=== PATIENT | male | born 1975 | race Two or more races ===

== ENCOUNTER 2018-06-21 19:50 | Emergency (ER) | payer BC ==
[2018-06-21] MEDS ORDERED: cefTRIAXone 1,000 MG VIAL IV ONE (20:02)
--- NOTE | 2018-06-21 20:05 | EDM.PDOC ---
ED HPI GENERAL MEDICAL PROBLEM - General Chief Complaint: ENT Problem Stated Complaint: CONGESTED AND WHITE BUMPS ON HIS THROAT Time Seen by Provider: 06/21/18 20:03 Source of Information: Reports: Patient - History of Present Illness INITIAL COMMENTS - FREE TEXT/NARRATIVE: HISTORY AND PHYSICAL: History of present illness: []A shortness sinus tenderness right greater than left increasing over the last week no fever nausea vomiting chills sweats complains of somewhat sore throat no muffled voice drooling or trismus Review of systems: As per history of present illness and below otherwise all systems reviewed and negative. Past medical history: As per history of present illness and as reviewed below otherwise noncontributory. Surgical history: As per history of present illness and as reviewed below otherwise noncontributory. Social history: No reported history of drug or alcohol abuse. Family history: As per history of present illness and as reviewed below otherwise noncontributory. Physical exam: HEENT: Atraumatic, normocephalic, pupils reactive, negative for conjunctival pallor or scleral icterus, mucous membranes moist, throat clear, neck supple, nontender, trachea midline. Sinus pain right greater than left noted postnasal drip mild erythema of the oropharynx Lungs: Clear to auscultation, breath sounds equal bilaterally, chest nontender. Heart: S1S2, regular, negative for clicks, rubs, or JVD. Abdomen: Soft, nondistended, nontender. Negative for masses or hepatosplenomegaly. Negative for costovertebral tenderness. Pelvis: Stable nontender. Genitourinary: Deferred. Rectal: Deferred. Extremities: Atraumatic, negative for cords or calf pain. Neurovascular unremarkable. Neuro: Awake, alert, oriented. Cranial nerves II through XII unremarkable. Cerebellum unremarkable. Motor and sensory unremarkable throughout. Exam nonfocal. Diagnostics: []Clinical Therapeutics: []Rocephin 1 g IM Augmentin 875 by mouth twice a day #20 no refill Impression: [] cute sinusitis Definitive disposition and diagnosis as appropriate pending reevaluation and review of above. throat Pain Score (Numeric/FACES): 8 - Related Data Allergies Allergy/AdvReac Type Severity Reaction Status Date / Time No Known Allergies Allergy Verified 06/21/18 19:54 Home Meds: Home Meds amLODIPine [Norvasc] 20 mg PO DAILY 09/30/16 [History] Lisinopril/Hydrochlorothiazide [Lisinopril-Hctz 20-25 mg Tab] 1 each PO DAILY [History] Past Medical History Other HEENT History: many dental caries, dry socket Cardiovascular History: Reports: Hypertension Respiratory History: Reports: None Gastrointestinal History: Reports: None Genitourinary History: Reports: None Musculoskeletal History: Reports: None Neurological History: Reports: None Psychiatric History: Reports: None Endocrine/Metabolic History: Reports: None Hematologic History: Reports: None Immunologic History: Reports: None Oncologic (Cancer) History: Reports: None Dermatologic History: Reports: None - Infectious Disease History Infectious Disease History: Reports: None - Past Surgical History Head Surgeries/Procedures: Reports: None Social & Family History - Family History Family Medical History: Noncontributory - Tobacco Use Smoking Status *Q: Current Every Day Smoker Years of Tobacco use: 7 Packs/Tins Daily: 0.5 - Caffeine Use Caffeine Use: Reports: Soda - Recreational Drug Use Recreational Drug Use: No ED ROS GENERAL - Review of Systems Review Of Systems: See Below ED EXAM, GENERAL - Physical Exam Exam: See Below Course - Vital Signs Last Recorded V/S: Last Vital Signs Temp 98.1 F 06/21/18 19:56 Pulse 85 06/21/18 19:56 Resp 85 H 06/21/18 19:56 BP 153/78 H 06/21/18 19:56 Pulse Ox 96 06/21/18 19:56 - Orders/Labs/Meds Orders: Active Orders 24 hr Category Date Time Status cefTRIAXone [Rocephin] Med 06/21/18 20:02 Once 1,000 mg IV ONETIME ONE Medication Orders Ceftriaxone Sodium (Rocephin) 1,000 mg IV ONETIME ONE Stop: 06/21/18 20:03 Meds: Medications Generic Name Dose Route Start Last Admin Trade Name Freq PRN Reason Stop Dose Admin Ceftriaxone Sodium 1,000 mg 06/21/18 20:02 Rocephin IV 06/21/18 20:03 ONETIME ONE Departure - Departure Time of Disposition: 20:04 Disposition: Home, Self-Care 01 Condition: Good Clinical Impression: Sinusitis - Discharge Information Referrals: PCP,None [Primary Care Provider] - Additional Instructions: The following information is given to patients seen in the emergency department who are being discharged to home. This information is to outline your options for follow-up care. We provide all patients seen in our emergency department with a follow-up referral. The need for follow-up, as well as the timing and circumstances, are variable depending upon the specifics of your emergency department visit. If you don't have a primary care physician on staff, we will provide you with a referral. We always advise you to contact your personal physician following an emergency department visit to inform them of the circumstance of the visit and for follow-up with them and/or the need for any referrals to a consulting specialist. The emergency department will also refer you to a specialist when appropriate. This referral assures that you have the opportunity for follow-up care with a specialist. All of these measure are taken in an effort to provide you with optimal care, which includes your follow-up. Under all circumstances we always encourage you to contact your private physician who remains a resource for coordinating your care. When calling for follow-up care, please make the office aware that this follow-up is from your recent emergency room visit. If for any reason you are refused follow-up, please contact the [facility] emergency department at and asked to speak to the emergency department charge nurse. - My Orders Last 24 Hours: My Active Orders 06/21/18 20:02 cefTRIAXone [Rocephin] 1,000 mg IV ONETIME ONE - Assessment/Plan Last 24 Hours: My Active Orders 06/21/18 20:02 cefTRIAXone [Rocephin] 1,000 mg IV ONETIME ONE
[2018-06-21] MEDS ORDERED: cefTRIAXone 1,000 MG in Lidocaine 1% 4 ML IM ONE (20:14)
[2018-06-21] MEDS ORDERED: Lidocaine 1% 4 ML ONE (20:16)
[2018-06-21 21:21] VITALS: BP 145/73
== END 2018-06-21 20:56 | disposition home or self-care (01) ==
LOC: MW.ED 19:50
DX: J01.90 Acute sinusitis, unspecified (principal); F17.210 Nicotine dependence, cigarettes, uncomplicated; I10 Essential (primary) hypertension; Z79.899 Other long term (current) drug therapy
CPT/HCPCS: 96372; 99283; J0696; J2001; 99282

== ENCOUNTER 2019-02-28 10:32 | Emergency (ER) | payer BC ==
[2019-02-28] MEDS ORDERED: Sodium Chloride 0.9% 1,000 ML IV ONE (10:38)
[2019-02-28] MEDS ORDERED: Ketorolac 30 MG/ML SDV IVPUSH ONE (10:38)
--- NOTE | 2019-02-28 10:38 | EDM.PDOC ---
ED HPI GENERAL MEDICAL PROBLEM - General Chief Complaint: Headache Stated Complaint: HEADACHE Time Seen by Provider: 02/28/19 10:38 Source of Information: Reports: Patient - History of Present Illness INITIAL COMMENTS - FREE TEXT/NARRATIVE: HISTORY AND PHYSICAL: History of present illness: [Patient presents with headache 8 out of 10 nonradiating diffuse frontal headache with some nausea no fever chills sweats no dizziness or palpitation ] Review of systems: As per history of present illness and below otherwise all systems reviewed and negative. Past medical history: As per history of present illness and as reviewed below otherwise noncontributory. Surgical history: As per history of present illness and as reviewed below otherwise noncontributory. Social history: No reported history of drug or alcohol abuse. Family history: As per history of present illness and as reviewed below otherwise noncontributory. Physical exam: HEENT: Atraumatic, normocephalic, pupils reactive, negative for conjunctival pallor or scleral icterus, mucous membranes moist, throat clear, neck supple, nontender, trachea midline. Lungs: Clear to auscultation, breath sounds equal bilaterally, chest nontender. Heart: S1S2, regular, negative for clicks, rubs, or JVD. Abdomen: Soft, nondistended, nontender. Negative for masses or hepatosplenomegaly. Negative for costovertebral tenderness. Pelvis: Stable nontender. Genitourinary: Deferred. Rectal: Deferred. Extremities: Atraumatic, negative for cords or calf pain. Neurovascular unremarkable. Neuro: Awake, alert, oriented. Cranial nerves II through XII unremarkable. Cerebellum unremarkable. Motor and sensory unremarkable throughout. Exam nonfocal. Diagnostics: [CBC CMP UA Influenza Head CT no contrast ] Therapeutics: [ renal saline Toradol Levaquin 500 by mouth daily #10 no refill ] Impression: [ headache ]-renate Sinusitis Definitive disposition and diagnosis as appropriate pending reevaluation and review of above. headache Pain Score (Numeric/FACES): 9 - Related Data Allergies Allergy/AdvReac Type Severity Reaction Status Date / Time No Known Allergies Allergy Verified 09/02/18 17:22 Home Meds: Home Meds amLODIPine [Norvasc] 20 mg PO DAILY 09/30/16 [History] Lisinopril/Hydrochlorothiazide [Lisinopril-Hctz 20-25 mg Tab] 1 each PO DAILY [History] amLODIPine Besylate [Amlodipine Besylate] 10 mg PO DAILY 09/02/18 [History] Buprenorphine HCl/Naloxone HCl [Suboxone 4 mg-1 mg Sl Film] 8 mg SL 02/28/19 [ History] Past Medical History Other HEENT History: many dental caries, dry socket Cardiovascular History: Reports: Hypertension Respiratory History: Reports: None Gastrointestinal History: Reports: None Genitourinary History: Reports: None Musculoskeletal History: Reports: None Neurological History: Reports: None Psychiatric History: Reports: Addiction Endocrine/Metabolic History: Reports: None Hematologic History: Reports: None Immunologic History: Reports: None Oncologic (Cancer) History: Reports: None Dermatologic History: Reports: None - Infectious Disease History Infectious Disease History: Reports: Chicken Pox - Past Surgical History Head Surgeries/Procedures: Reports: None Social & Family History - Family History Family Medical History: Noncontributory - Caffeine Use Caffeine Use: Reports: Coffee ED ROS GENERAL - Review of Systems Review Of Systems: See Below ED EXAM, GENERAL - Physical Exam Exam: See Below Course - Vital Signs Last Recorded V/S: Last Vital Signs Temp 96.9 F 02/28/19 10:44 Pulse 72 02/28/19 10:44 Resp 16 02/28/19 10:44 BP 122/51 L 02/28/19 11:23 Pulse Ox 94 L 02/28/19 10:44 - Orders/Labs/Meds Labs: Laboratory Tests 02/28/19 02/28/19 02/28/19 Range/Units 10:55 11:05 11:05 WBC 6.03 (4.0-11.0) K/uL RBC 4.74 (4.50-5.90) M/uL Hgb 14.8 (13.0-17.0) g/dL Hct 43.5 (38.0-50.0) % MCV 91.8 (80.0-98.0) fL MCH 31.2 (27.0-32.0) pg MCHC 34.0 (31.0-37.0) g/dL RDW Std Deviation 43.3 (28.0-62.0) fl RDW Coeff of [place]inn[place] 13 (11.0-15.0) % Plt Count 229 (150-400) K/uL MPV 10.60 (7.40-12.00) fL Neut % (Auto) 63.0 (48.0-80.0) % Lymph % (Auto) 25.4 (16.0-40.0) % Starr % (Auto) 7.3 (0.0-15.0) % Eos % (Auto) 3.5 (0.0-7.0) % Baso % (Auto) 0.8 (0.0-1.5) % Neut # (Auto) 3.8 (1.4-5.7) K/uL Lymph # (Auto) 1.5 (0.6-2.4) K/uL Starr # (Auto) 0.4 (0.0-0.8) K/uL Eos # (Auto) 0.2 (0.0-0.7) K/uL Baso # (Auto) 0.1 (0.0-0.1) K/uL Nucleated RBC % 0.0 /100WBC Nucleated RBCs # 0 K/uL INR Sodium 139 (136-148) mmol/L Potassium 4.1 (3.5-5.1) mmol/L Chloride 103 (98-107) mmol/L Carbon Dioxide 26.4 (21.0-32.0) mmol/L BUN 14 (7.0-18.0) mg/dL Creatinine 0.7 L (0.8-1.3) mg/dL Est Cr Clr Drug Dosing TNP Estimated GFR (MDRD) > 60.0 ml/min Glucose 117 H (74-106) mg/dL Calcium 9.3 (8.5-10.1) mg/dL Total Bilirubin 0.3 (0.2-1.0) mg/dL AST 28 (15-37) IU/L ALT 68 H (14-63) IU/L Alkaline Phosphatase 58 (46-116) U/L Total Protein 7.3 (6.4-8.2) g/dL Albumin 4.0 (3.4-5.0) g/dL Globulin 3.3 (2.6-4.0) g/dL Albumin/Globulin Ratio 1.2 (0.9-1.6) Urine Color YELLOW Urine Appearance CLEAR Urine pH 7.0 (5.0-8.0) Ur Specific [place] 1.010 (1.001-1.035) Urine Protein NEGATIVE (NEGATIVE) mg/dL Urine Glucose (UA) NEGATIVE (NEGATIVE) mg/dL Urine Ketones NEGATIVE (NEGATIVE) mg/dL Urine Occult Blood NEGATIVE (NEGATIVE) Urine Nitrite NEGATIVE (NEGATIVE) Urine Bilirubin NEGATIVE (NEGATIVE) Urine Urobilinogen 0.2 (<2.0) EU/dL Ur Leukocyte Esterase NEGATIVE (NEGATIVE) 02/28/19 Range/Units 11:05 WBC (4.0-11.0) K/uL RBC (4.50-5.90) M/uL Hgb (13.0-17.0) g/dL Hct (38.0-50.0) % MCV (80.0-98.0) fL MCH (27.0-32.0) pg MCHC (31.0-37.0) g/dL RDW Std Deviation (28.0-62.0) fl RDW Coeff of [place]ette (11.0-15.0) % Plt Count (150-400) K/uL MPV (7.40-12.00) fL Neut % (Auto) (48.0-80.0) % Lymph % (Auto) (16.0-40.0) % Starr % (Auto) (0.0-15.0) % Eos % (Auto) (0.0-7.0) % Baso % (Auto) (0.0-1.5) % Neut # (Auto) (1.4-5.7) K/uL Lymph # (Auto) (0.6-2.4) K/uL Starr # (Auto) (0.0-0.8) K/uL Eos # (Auto) (0.0-0.7) K/uL Baso # (Auto) (0.0-0.1) K/uL Nucleated RBC % /100WBC Nucleated RBCs # K/uL INR 0.96 Sodium (136-148) mmol/L Potassium (3.5-5.1) mmol/L Chloride (98-107) mmol/L Carbon Dioxide (21.0-32.0) mmol/L BUN (7.0-18.0) mg/dL Creatinine (0.8-1.3) mg/dL Est Cr Clr Drug Dosing Estimated GFR (MDRD) ml/min Glucose (74-106) mg/dL Calcium (8.5-10.1) mg/dL Total Bilirubin (0.2-1.0) mg/dL AST (15-37) IU/L ALT (14-63) IU/L Alkaline Phosphatase (46-116) U/L Total Protein (6.4-8.2) g/dL Albumin (3.4-5.0) g/dL Globulin (2.6-4.0) g/dL Albumin/Globulin Ratio (0.9-1.6) Urine Color Urine Appearance Urine pH (5.0-8.0) Ur Specific [place] (1.001-1.035) Urine Protein (NEGATIVE) mg/dL Urine Glucose (UA) (NEGATIVE) mg/dL Urine Ketones (NEGATIVE) mg/dL Urine Occult Blood (NEGATIVE) Urine Nitrite (NEGATIVE) Urine Bilirubin (NEGATIVE) Urine Urobilinogen (<2.0) EU/dL Ur Leukocyte Esterase (NEGATIVE) Meds: Medications Discontinued Medications Generic Name Dose Route Start Last Admin Trade Name Freq PRN Reason Stop Dose Admin Enalaprilat 0.625 mg 02/28/19 11:10 02/28/19 11:23 Vasotec Iv IVPUSH 02/28/19 11:11 Not Given ONETIME ONE Sodium Chloride 1,000 mls @ 999 mls/hr 02/28/19 10:38 02/28/19 11:05 Normal Saline IV 02/28/19 11:38 999 mls/hr STAT ONE Administration Ketorolac Tromethamine 30 mg 02/28/19 10:38 02/28/19 11:07 Toradol IVPUSH 02/28/19 10:39 30 mg ONETIME ONE Administration Departure - Departure Time of Disposition: 12:32 Disposition: Home, Self-Care 01 Condition: Good Clinical Impression: Sinusitis - Discharge Information Referrals: PCP,Unknown [Primary Care Provider] - Forms: ED Department Discharge Additional Instructions: The following information is given to patients seen in the emergency department who are being discharged to home. This information is to outline your options for follow-up care. We provide all patients seen in our emergency department with a follow-up referral. The need for follow-up, as well as the timing and circumstances, are variable depending upon the specifics of your emergency department visit. If you don't have a primary care physician on staff, we will provide you with a referral. We always advise you to contact your personal physician following an emergency department visit to inform them of the circumstance of the visit and for follow-up with them and/or the need for any referrals to a consulting specialist. The emergency department will also refer you to a specialist when appropriate. This referral assures that you have the opportunity for follow-up care with a specialist. All of these measure are taken in an effort to provide you with optimal care, which includes your follow-up. Under all circumstances we always encourage you to contact your private physician who remains a resource for coordinating your care. When calling for follow-up care, please make the office aware that this follow-up is from your recent emergency room visit. If for any reason you are refused follow-up, please contact the [facility] emergency department at and asked to speak to the emergency department charge nurse.
[2019-02-28] MEDS ORDERED: Enalaprilat 1.25 MG/ML SDV IVPUSH STA (10:44)
[2019-02-28] MEDS ORDERED: Enalaprilat 1.25 MG/ML SDV IVPUSH ONE (11:10)
[2019-02-28 11:38] LABS: CHLORIDE,CL 103 mmol/L (98-107); SODIUM,NA 139 mmol/L (136-148)
--- NOTE | 2019-02-28 12:09 | CT ---
Indication: Headache Technique: Noncontrast head CT scan Findings: Axial noncontrast images through the brain parenchyma demonstrates no acute intracranial hemorrhage or mass. No midline shift. No abnormal extra-axial air or fluid collections. Polypoid soft tissue density in left maxillary sinus may represent mucous retention cyst or polyp. There is mild mucosal thickening of the maxillary sinuses. Opacification Of the ethmoid air cells. Paranasal sinuses mastoid air cells skull and scalp otherwise appears unremarkable. IMPRESSION: 1. No acute intracranial hemorrhage or mass. 2. Maxillary and ethmoid sinus disease. Please note that all CT scans at this facility use dose modulation, iterative reconstruction, and/or weight-based dosing when appropriate to reduce radiation dose to as low as reasonably achievable. Dictated by Katlyn Dockrey MD @ Feb 28 2019 12:05PM Signed by Dr. Katlyn Dockery @ Feb 28 2019 12:08PM
[2019-02-28 12:56] VITALS: BP 104/64
== END 2019-02-28 12:47 | disposition home or self-care (01) ==
LOC: MW.ED 10:32
DX: J32.9 Chronic sinusitis, unspecified (principal); I10 Essential (primary) hypertension; Z79.899 Other long term (current) drug therapy
CPT/HCPCS: 36415; 70450; 80053; 81003; 85025; 85610; 87804; 96361; 96374; 99284; J1885; J7040

== ENCOUNTER 2019-04-17 20:23 | Emergency (ER) | payer BC ==
[2019-04-17] MEDS ORDERED: Ondansetron 4 MG/2 ML SDV IVPUSH ONE (20:44)
[2019-04-17] MEDS ORDERED: Pantoprazole 40 MG Vial IVPUSH ONE (20:44)
[2019-04-17] MEDS ORDERED: Sodium Chloride 0.9% 10 ML Syringe FLUSH PRN (20:44)
[2019-04-17] MEDS ORDERED: Sodium Chloride 0.9% 2.5 ML Syringe FLUSH PRN (20:44)
[2019-04-17] MEDS ORDERED: Ketorolac 30 MG/ML SDV IVPUSH ONE (20:44)
[2019-04-17] MEDS ORDERED: Sodium Chloride 0.9% 1,000 ML IV ONE (20:44)
--- NOTE | 2019-04-17 20:46 | EDM.PDOC ---
ED HPI GENERAL MEDICAL PROBLEM - General Chief Complaint: Abdominal Pain Stated Complaint: BULGING AND MOVING MASS ON SIDE OF STOMACH Time Seen by Provider: 04/17/19 20:38 - History of Present Illness INITIAL COMMENTS - FREE TEXT/NARRATIVE: HISTORY AND PHYSICAL: History of present illness: The patient is a 44-year-old male with a history of hypertension who takes medications for that as well as takes Suboxone and presents with 2 months of episodic right upper quadrant pain associated with nausea. He says that the pain only occurs after he eats and is not specific to any particular foods. He says the episodes will last from several minutes to 45 minutes and he does not do anything to make it go away. He says it is not a burning pain and it is not like heartburn or acid reflux and he is only taking [id number] Tylenol or ibuprofen to help with the pain. He's had no vomiting with this fevers chills or flank pain and no diarrhea. His stools are not black bloody or pasty and he says they're regular for him. Currently the patient is not having the pain but he says that it feels numb and tingly in that area on the skin which also happens after an episode of pain. He has no abdominal surgical history and no GI history. He has no chest pain or shortness of breath no fevers or chills. He does have a provider in the clinic but he has not seen a provider for this. The patient describes the pain as a deep achy pain associated with the nausea. The pain does not move to the right lower quadrant or to the left side and it is not in the epigastric region. Patient says he came in this evening because he had an episode of the pain again as described above after eating and then he saw his stomach moving and he was worried. The patient says that he smokes cigarettes but he does not drink alcohol . Patient tells me he never wakes up in the middle of night with the pain and he only has pain after eating and at no other times Review of systems: As per history of present illness and below otherwise all systems reviewed and negative. Past medical history: As per history of present illness and as reviewed below otherwise noncontributory. Surgical history: As per history of present illness and as reviewed below otherwise noncontributory. Social history: No reported history of drug or alcohol abuse. Family history: As per history of present illness and as reviewed below otherwise noncontributory. Physical exam: General: Well-developed well-nourished man who is overweight and nontoxic. Vital signs are noted by me HEENT: Atraumatic, normocephalic, negative for conjunctival pallor or scleral icterus, mucous membranes moist, throat clear, neck supple, nontender, trachea midline. Lungs: Clear to auscultation, breath sounds equal bilaterally, chest nontender. Heart: S1S2, regular rate and rhythm no overt murmurs Abdomen: Soft, nondistended, nontender. Bowel sounds are slightly hyperactive and there is no tympany on percussion. There is some mild tenderness on very deep palpation in the right upper quadrant without rebound or guarding and there is no other tenderness throughout the abdomen likely in the right lower quadrant over the epigastrium. Negative for masses or hepatosplenomegaly. Negative for costovertebral tenderness. Pelvis: Stable nontender. Genitourinary: Deferred. Rectal: Deferred. Extremities: Atraumatic, full range of motion of all extremities and no pedal edema Neurovascular unremarkable. Neuro: Awake, alert, oriented. Cranial nerves II through XII unremarkable. Cerebellum unremarkable. Motor and sensory unremarkable throughout. Exam nonfocal. Diagnostics: CBC CMP amylase and lipase H. pylori UA with reflex INR CT scan of the abdomen and pelvis Therapeutics: IV fluids Zofran and Protonix Toradol I discussed all testing results with the patient and care plan for home. We will treat the H. pylori infection but he does need to follow-up as symptoms seem more consistent with an ulcer and he may need endoscopy going forward. Again he has not had any right lower quadrant tenderness nor did he may exam but he is aware that his appendix is on the larger side and he was warned about things to keep an eye out for and reasons to return Impression: Episodic right upper quadrant pain, H. pylori infection Definitive disposition and diagnosis as appropriate pending reevaluation and review of above. Right Upper Abdomen Pain Score (Numeric/FACES): 3 - Related Data Allergies Allergy/AdvReac Type Severity Reaction Status Date / Time No Known Allergies Allergy Verified 04/17/19 20:28 Home Meds: Home Meds Lisinopril/Hydrochlorothiazide [Lisinopril-Hctz 20-25 mg Tab] 1 each PO DAILY [History] Buprenorphine HCl/Naloxone HCl [Suboxone 4 mg-1 mg Sl Film] 8 mg SL DAILY [History] Past Medical History Other HEENT History: many dental caries, dry socket Cardiovascular History: Reports: Hypertension Respiratory History: Reports: None Gastrointestinal History: Reports: None Genitourinary History: Reports: None Musculoskeletal History: Reports: None Neurological History: Reports: None Psychiatric History: Reports: Addiction Endocrine/Metabolic History: Reports: None Hematologic History: Reports: None Immunologic History: Reports: None Oncologic (Cancer) History: Reports: None Dermatologic History: Reports: None - Infectious Disease History Infectious Disease History: Reports: Chicken Pox - Past Surgical History Head Surgeries/Procedures: Reports: None Social & Family History - Family History Family Medical History: Noncontributory - Tobacco Use Smoking Status *Q: Current Every Day Smoker Years of Tobacco use: 24 Packs/Tins Daily: 1 - Caffeine Use Caffeine Use: Reports: Coffee, Energy Drinks, Soda, Tea - Recreational Drug Use Recreational Drug Use: No ED ROS GENERAL - Review of Systems Review Of Systems: ROS reveals no pertinent complaints other than HPI. ED EXAM, GENERAL - Physical Exam Exam: See Below (See dictation) Course - Vital Signs Last Recorded V/S: Last Vital Signs Temp 36.4 C 04/17/19 20:30 Pulse 94 04/17/19 20:30 Resp 20 04/17/19 20:30 BP 173/100 H 04/17/19 20:30 Pulse Ox 94 L 04/17/19 20:30 - Orders/Labs/Meds Orders: Active Orders 24 hr Category Date Time Status Sodium Chloride 0.9% [Saline Flush] Med 04/17/19 20:44 Active 10 ml FLUSH ASDIRECTED PRN Sodium Chloride 0.9% [Saline Flush] Med 04/17/19 20:44 Active 2.5 ml FLUSH ASDIRECTED PRN Saline Lock Insert [OM.PC] Stat Oth 04/17/19 20:43 Ordered Medication Orders Sodium Chloride (Saline Flush) 10 ml FLUSH ASDIRECTED PRN PRN Reason: Keep Vein Open Last Admin: 04/17/19 21:06 Dose: 10 ml Sodium Chloride (Saline Flush) 2.5 ml FLUSH ASDIRECTED PRN PRN Reason: Keep Vein Open Last Admin: 04/17/19 21:06 Dose: 2.5 ml Labs: Laboratory Tests 04/17/19 04/17/19 04/17/19 Range/Units 20:43 20:55 20:55 WBC 7.59 (4.0-11.0) K/uL RBC 4.56 (4.50-5.90) M/uL Hgb 14.3 (13.0-17.0) g/dL Hct 41.3 (38.0-50.0) % MCV 90.6 (80.0-98.0) fL MCH 31.4 (27.0-32.0) pg MCHC 34.6 (31.0-37.0) g/dL RDW Std Deviation 42.1 (28.0-62.0) fl RDW Coeff of Linnette 13 (11.0-15.0) % Plt Count 242 (150-400) K/uL MPV 10.70 (7.40-12.00) fL Neut % (Auto) 52.1 (48.0-80.0) % Lymph % (Auto) 36.0 (16.0-40.0) % Williamson % (Auto) 7.1 (0.0-15.0) % Eos % (Auto) 4.1 (0.0-7.0) % Baso % (Auto) 0.7 (0.0-1.5) % Neut # (Auto) 4.0 (1.4-5.7) K/uL Lymph # (Auto) 2.7 H (0.6-2.4) K/uL Williamson # (Auto) 0.5 (0.0-0.8) K/uL Eos # (Auto) 0.3 (0.0-0.7) K/uL Baso # (Auto) 0.1 (0.0-0.1) K/uL Nucleated RBC % 0.0 /100WBC Nucleated RBCs # 0 K/uL INR 1.02 Sodium (136-148) mmol/L Potassium (3.5-5.1) mmol/L Chloride (98-107) mmol/L Carbon Dioxide (21.0-32.0) mmol/L BUN (7.0-18.0) mg/dL Creatinine (0.8-1.3) mg/dL Est Cr Clr Drug Dosing mL/min Estimated GFR (MDRD) ml/min Glucose (74-106) mg/dL Calcium (8.5-10.1) mg/dL Total Bilirubin (0.2-1.0) mg/dL AST (15-37) IU/L ALT (14-63) IU/L Alkaline Phosphatase (46-116) U/L Total Protein (6.4-8.2) g/dL Albumin (3.4-5.0) g/dL Globulin (2.6-4.0) g/dL Albumin/Globulin Ratio (0.9-1.6) Amylase (25-115) U/L Lipase (73-393) U/L Urine Color YELLOW Urine Appearance CLEAR Urine pH 6.5 (5.0-8.0) Ur Specific Anita 1.025 (1.001-1.035) Urine Protein NEGATIVE (NEGATIVE) mg/dL Urine Glucose (UA) NEGATIVE (NEGATIVE) mg/dL Urine Ketones NEGATIVE (NEGATIVE) mg/dL Urine Occult Blood NEGATIVE (NEGATIVE) Urine Nitrite NEGATIVE (NEGATIVE) Urine Bilirubin NEGATIVE (NEGATIVE) Urine Urobilinogen 0.2 (<2.0) EU/dL Ur Leukocyte Esterase NEGATIVE (NEGATIVE) H. pylori IgG Antibody (NEG) 04/17/19 04/17/19 Range/Units 20:55 20:58 WBC (4.0-11.0) K/uL RBC (4.50-5.90) M/uL Hgb (13.0-17.0) g/dL Hct (38.0-50.0) % MCV (80.0-98.0) fL MCH (27.0-32.0) pg MCHC (31.0-37.0) g/dL RDW Std Deviation (28.0-62.0) fl RDW Coeff of Linnette (11.0-15.0) % Plt Count (150-400) K/uL MPV (7.40-12.00) fL Neut % (Auto) (48.0-80.0) % Lymph % (Auto) (16.0-40.0) % Williamson % (Auto) (0.0-15.0) % Eos % (Auto) (0.0-7.0) % Baso % (Auto) (0.0-1.5) % Neut # (Auto) (1.4-5.7) K/uL Lymph # (Auto) (0.6-2.4) K/uL Williamson # (Auto) (0.0-0.8) K/uL Eos # (Auto) (0.0-0.7) K/uL Baso # (Auto) (0.0-0.1) K/uL Nucleated RBC % /100WBC Nucleated RBCs # K/uL INR Sodium 139 (136-148) mmol/L Potassium 3.5 (3.5-5.1) mmol/L Chloride 102 (98-107) mmol/L Carbon Dioxide 28.7 (21.0-32.0) mmol/L BUN 15 (7.0-18.0) mg/dL Creatinine 0.7 L (0.8-1.3) mg/dL Est Cr Clr Drug Dosing 134.67 mL/min Estimated GFR (MDRD) > 60.0 ml/min Glucose 118 H (74-106) mg/dL Calcium 9.0 (8.5-10.1) mg/dL Total Bilirubin 0.3 (0.2-1.0) mg/dL AST 26 (15-37) IU/L ALT 57 (14-63) IU/L Alkaline Phosphatase 66 (46-116) U/L Total Protein 7.3 (6.4-8.2) g/dL Albumin 3.9 (3.4-5.0) g/dL Globulin 3.4 (2.6-4.0) g/dL Albumin/Globulin Ratio 1.1 (0.9-1.6) Amylase 37 (25-115) U/L Lipase 201 (73-393) U/L Urine Color Urine Appearance Urine pH (5.0-8.0) Ur Specific Anita (1.001-1.035) Urine Protein (NEGATIVE) mg/dL Urine Glucose (UA) (NEGATIVE) mg/dL Urine Ketones (NEGATIVE) mg/dL Urine Occult Blood (NEGATIVE) Urine Nitrite (NEGATIVE) Urine Bilirubin (NEGATIVE) Urine Urobilinogen (<2.0) EU/dL Ur Leukocyte Esterase (NEGATIVE) H. pylori IgG Antibody POSITIVE H (NEG) Meds: Medications Generic Name Dose Route Start Last Admin Trade Name Freq PRN Reason Stop Dose Admin Sodium Chloride 10 ml 04/17/19 20:44 04/17/19 21:06 Saline Flush FLUSH 10 ml ASDIRECTED PRN Administration Keep Vein Open Sodium Chloride 2.5 ml 04/17/19 20:44 04/17/19 21:06 Saline Flush FLUSH 2.5 ml ASDIRECTED PRN Administration Keep Vein Open Discontinued Medications Generic Name Dose Route Start Last Admin Trade Name Freq PRN Reason Stop Dose Admin Sodium Chloride 1,000 mls @ 999 mls/hr 04/17/19 20:44 04/17/19 20:55 Normal Saline IV 04/17/19 21:44 999 mls/hr STAT ONE Administration Sodium Chloride Confirm 04/17/19 20:58 04/17/19 21:07 Normal Saline Administered 04/17/19 20:59 1 mls/hr Dose Administration 20 mls @ as directed .ROUTE .STK-MED ONE Ketorolac Tromethamine 30 mg 04/17/19 20:44 04/17/19 21:05 Toradol IVPUSH 04/17/19 20:45 30 mg ONETIME ONE Administration Ondansetron HCl 4 mg 04/17/19 20:44 04/17/19 21:03 Zofran IVPUSH 04/17/19 20:45 4 mg ONETIME ONE Administration Pantoprazole Sodium 80 mg 04/17/19 20:44 04/17/19 21:03 Protonix Iv IVPUSH 04/17/19 20:45 80 mg .BOLUS ONE Administration Departure - Departure Time of Disposition: 22:50 Disposition: Home, Self-Care 01 Condition: Good Clinical Impression: H. pylori infection Abdominal pain Qualifiers: Abdominal location: right upper quadrant Qualified Code(s): R10.11 - Right upper quadrant pain - Discharge Information Referrals: PCP,Unknown [Primary Care Provider] - Forms: ED Department Discharge Additional Instructions: The following information is given to patients seen in the emergency department who are being discharged to home. This information is to outline your options for follow-up care. We provide all patients seen in our emergency department with a follow-up referral. The need for follow-up, as well as the timing and circumstances, are variable depending upon the specifics of your emergency department visit. If you don't have a primary care physician on staff, we will provide you with a referral. We always advise you to contact your personal physician following an emergency department visit to inform them of the circumstance of the visit and for follow-up with them and/or the need for any referrals to a consulting specialist. The emergency department will also refer you to a specialist when appropriate. This referral assures that you have the opportunity for followup care with a specialist. All of these measure are taken in an effort to provide you with optimal care, which includes your followup. Under all circumstances we always encourage you to contact your private physician who remains a resource for coordinating your care. When calling for followup care, please make the office aware that this follow-up is from your recent emergency room visit. If for any reason you are refused follow-up, please contact the [facility] emergency department at and ask to speak to the emergency department charge nurse. [facility] Primary [facility]- [facility] Medicine [facility] [address] [place] [id number] [facility] Professional Building [address] [place] [id number] Please try to eat a bland diet and avoid caffeinated products and alcohol. Please take medications as prescribed for the infection in your stomach and please call and schedule a follow-up appointment for next week with one of our providers in the clinic to reevaluate your symptoms and to see if you need more testing such as an upper endoscopy. Return to ER as needed and as discussed - My Orders Last 24 Hours: My Active Orders 04/17/19 20:43 Saline Lock Insert [OM.PC] Stat 04/17/19 20:44 Sodium Chloride 0.9% [Saline Flush] 10 ml FLUSH ASDIRECTED PRN Sodium Chloride 0.9% [Saline Flush] 2.5 ml FLUSH ASDIRECTED PRN - Assessment/Plan Last 24 Hours: My Active Orders 04/17/19 20:43 Saline Lock Insert [OM.PC] Stat 04/17/19 20:44 Sodium Chloride 0.9% [Saline Flush] 10 ml FLUSH ASDIRECTED PRN Sodium Chloride 0.9% [Saline Flush] 2.5 ml FLUSH ASDIRECTED PRN
[2019-04-17] MEDS ORDERED: Sodium Chloride 0.9% 20 ML ONE (20:58)
[2019-04-17 21:43] LABS: CHLORIDE,CL 102 mmol/L (98-107); SODIUM,NA 139 mmol/L (136-148)
--- NOTE | 2019-04-17 22:42 | CT ---
INDICATION: Episodic right upper quadrant pain TECHNIQUE: CT abdomen and pelvis acquired with 100 cc Isovue 370 IV contrast. COMPARISON: None FINDINGS: Lower chest: Unremarkable. Liver: Unremarkable. Spleen: Unremarkable. Pancreas: Unremarkable. Gallbladder and bile ducts: Unremarkable. Adrenal glands: Unremarkable. Kidneys: Unremarkable. GI tract: The appendix measures 7.6 mm in diameter. There is no periappendiceal fat stranding. Moderate amount of feces throughout the colon. Vascular structures: Unremarkable. Lymph nodes: Unremarkable. Miscellaneous: Unremarkable. No free air or significant free fluid. Pelvic Organs: Unremarkable. Bones: Unremarkable for age. IMPRESSION: Mild dilatation of the appendix without appendiceal fat stranding. This may be normal for this patient or could represent early acute appendicitis. Clinical correlation needed. Moderate amount of feces throughout the colon. Please note that all CT scans at this facility use dose modulation, iterative reconstruction, and/or weight-based dosing when appropriate to reduce radiation dose to as low as reasonably achievable. Dictated by Stefany Garcia MD @ Apr 17 2019 10:40PM Signed by Dr. Stefany Garcia @ Apr 17 2019 10:40PM
[2019-04-17] MEDS ORDERED: Iopamidol 755 MG/ML 500 ML Multipack Bottle IVPUSH STA (22:55)
[2019-04-18 01:56] VITALS: BP 142/84
== END 2019-04-17 23:15 | disposition home or self-care (01) ==
LOC: MW.ED 20:23
DX: R10.11 Right upper quadrant pain (principal); B96.81 Helicobacter pylori [H. pylori] as the cause of diseases classified elsewhere; I10 Essential (primary) hypertension; F17.210 Nicotine dependence, cigarettes, uncomplicated; Z79.899 Other long term (current) drug therapy
CPT/HCPCS: 36415; 74177; 80053; 81003; 82150; 83690; 85025; 85610; 86677; 96361; 96374; 96375; 99284; C9113; J1885; J2405; J7040; Q9967

== ENCOUNTER 2020-03-11 20:50 | Emergency (ER) | payer BC ==
[2020-03-11] MEDS ORDERED: cloNIDine 0.1 MG Tab PO ONE (21:07)
--- NOTE | 2020-03-11 21:14 | EDM.PDOC ---
ED HPI GENERAL MEDICAL PROBLEM - General Chief Complaint: Cardiovascular Problem Stated Complaint: BLOOD PRESSURE PROBLEMS Time Seen by Provider: 03/11/20 20:54 Source of Information: Reports: Patient History Limitations: Reports: No Limitations - History of Present Illness INITIAL COMMENTS - FREE TEXT/NARRATIVE: History of present illness: [Patient is 45-year-old male who presents with chief complaint of blood pressure control problems. He states he was recently seen by Dr. Guthrie, who adjusted some of his medications and started him on losartan that he takes in the morning, and amlodipine that he takes at night. He is also taking chlorthalidone in the morning. He has been on this new regimen now for a few days. He states that his blood pressure was high while he was at work today, he measured it and it was in the 190s over 120s. He felt a little bit tired and "heavy in his chest." He went home and took his evening dose of amlodipine and states that he is starting to feel better now though his blood pressure is still running high. Currently denies any chest pain, shortness of breath, fever , cough, headache, blurry vision.] Review of systems: As per history of present illness and below otherwise all systems reviewed and negative. Past medical history: As per history of present illness and as reviewed below otherwise noncontributory. Surgical history: As per history of present illness and as reviewed below otherwise noncontributory. Social history: No reported history of drug or alcohol abuse. Family history: As per history of present illness and as reviewed below otherwise noncontributory. Physical exam: General: Awake, alert, no acute distress, A&O X3. HEENT: Atraumatic, normocephalic, pupils reactive, negative for conjunctival pallor or scleral icterus, mucous membranes moist, throat clear, neck supple, nontender, trachea midline. Lungs: Clear to auscultation, breath sounds equal bilaterally, chest nontender. Heart: S1S2, regular, negative for clicks, rubs, or JVD. Abdomen: Soft, nondistended, nontender. Negative for masses or hepatosplenomegaly. Negative for costovertebral tenderness. Pelvis: Stable nontender. Genitourinary: Deferred. Rectal: Deferred. Extremities: Atraumatic, negative for cords or calf pain. Neurovascular unremarkable. Neuro: Awake, alert, oriented. Motor and sensory grossly intact throughout. Exam nonfocal. Diagnostics: [] Therapeutics: [] Impression: [] Plan: [] Definitive disposition and diagnosis as appropriate pending reevaluation and review of above. - Related Data Allergies Allergy/AdvReac Type Severity Reaction Status Date / Time No Known Allergies Allergy Verified 03/11/20 21:05 Home Meds: Home Meds Buprenorphine HCl/Naloxone HCl [Suboxone 4 mg-1 mg Sl Film] 8 mg SL DAILY [History] Chlorthalidone 25 mg PO DAILY 03/11/20 [History] Losartan Potassium 50 mg PO DAILY 03/11/20 [History] amLODIPine Besylate [Amlodipine Besylate] 5 mg PO DAILY 03/11/20 [History] cloNIDine [Catapres] 0.1 mg PO Q8H PRN #30 tab 03/11/20 [Rx] Past Medical History Other HEENT History: many dental caries, dry socket Cardiovascular History: Reports: Hypertension Respiratory History: Reports: None Gastrointestinal History: Reports: None Genitourinary History: Reports: None Musculoskeletal History: Reports: None Neurological History: Reports: None Psychiatric History: Reports: Addiction Endocrine/Metabolic History: Reports: None Hematologic History: Reports: None Immunologic History: Reports: None Oncologic (Cancer) History: Reports: None Dermatologic History: Reports: None - Infectious Disease History Infectious Disease History: Reports: Chicken Pox - Past Surgical History Head Surgeries/Procedures: Reports: None Social & Family History - Family History Family Medical History: Noncontributory - Caffeine Use Caffeine Use: Reports: Coffee, Energy Drinks, Soda, Tea ED ROS GENERAL - Review of Systems Review Of Systems: Comprehensive ROS is negative, except as noted in HPI. ED EXAM, GENERAL - Physical Exam Exam: See Below (see h and p) Course - Vital Signs Text/Narrative:: Patient declined any, work-up. States that he only wanted to get his blood pressure checked and see if he can get an extra dose of medication to help control his blood pressure. I told him I was concerned about what happened to him earlier today with his chest discomfort and I thought it would be a good idea to get lab work, EKG, chest x-ray, etc. He states he would prefer to do that in the outpatient setting with Dr. Guthrie, she is setting him up with outpatient cardiology testing next week. He is currently asymptomatic. I told him a full work-up could not be elicited without these labs, he understands that , but has elected to forego any lab work or work-up at all other than agreeing to a dose of clonidine here to help with his blood pressure. Last Recorded V/S: Last Vital Signs Temp 36.2 C 03/11/20 21:02 Pulse 88 03/11/20 21:30 Resp 18 03/11/20 21:30 BP 151/99 H 03/11/20 21:30 Pulse Ox 94 L 03/11/20 21:30 - Orders/Labs/Meds Meds: Medications Discontinued Medications Generic Name Dose Route Start Last Admin Trade Name Freq PRN Reason Stop Dose Admin Clonidine HCl 0.1 mg 03/11/20 21:07 03/11/20 21:11 Catapres PO 03/11/20 21:08 0.1 mg ONETIME ONE Administration Departure - Departure Time of Disposition: 21:15 Disposition: Home, Self-Care 01 Condition: Good Clinical Impression: Hypertension Prescriptions: cloNIDine [Catapres] 0.1 mg PO Q8H PRN #30 tab PRN Reason: Hypertension Instructions: Managing Your Hypertension Referrals: PCP,None [Primary Care Provider] - Forms: ED Department Discharge Additional Instructions: Take the clonidine as needed if your other previously prescribed medications are not adequately controlling your blood pressure. Follow up with Dr. Guthrie, return to ED with any new or worsening symptoms. The following information is given to patients seen in the emergency department who are being discharged to home. This information is to outline your options for follow-up care. We provide all patients seen in our emergency department with a follow-up referral. The need for follow-up, as well as the timing and circumstances, are variable depending upon the specifics of your emergency department visit. If you don't have a primary care physician on staff, we will provide you with a referral. We always advise you to contact your personal physician following an emergency department visit to inform them of the circumstance of the visit and for follow-up with them and/or the need for any referrals to a consulting specialist. The emergency department will also refer you to a specialist when appropriate. This referral assures that you have the opportunity for follow-up care with a specialist. All of these measure are taken in an effort to provide you with optimal care, which includes your follow-up. Under all circumstances we always encourage you to contact your private physician who remains a resource for coordinating your care. When calling for follow-up care, please make the office aware that this follow-up is from your recent emergency room visit. If for any reason you are refused follow-up, please contact the [facility] Emergency Department at and asked to speak to the emergency department charge nurse. Sepsis Event Note - Evaluation Sepsis Screening Result: No Definite Risk - Focused Exam Vital Signs: Vital Signs Temp Pulse Resp BP BP Pulse Ox 03/11/20 21:30 88 18 151/99 H 94 L 03/11/20 21:11 158/87 H 03/11/20 21:02 36.2 C 94 18 157/102 H 98 Date Exam was Performed: 03/11/20 Time Exam was Performed: 22:33
[2020-03-11 21:34] VITALS: BP 151/99; PULSE 88
== END 2020-03-11 21:31 | disposition home or self-care (01) ==
LOC: MW.ED 20:50
DX: I10 Essential (primary) hypertension (principal); Z79.899 Other long term (current) drug therapy
CPT/HCPCS: 99283; A9270; 99282

== ENCOUNTER 2020-04-11 18:46 | Emergency (ER) | payer BC ==
--- NOTE | 2020-04-11 19:01 | EDM.PDOC ---
ED HPI GENERAL MEDICAL PROBLEM - General Stated Complaint: HIGH BLOOD PRESSURE Time Seen by Provider: 04/11/20 18:59 Source of Information: Reports: Patient History Limitations: Reports: No Limitations - History of Present Illness INITIAL COMMENTS - FREE TEXT/NARRATIVE: HISTORY AND PHYSICAL: History of present illness: Patient is a 45-year-old male who presents to the emergency room today with request of medication refill. Patient states he has a history of hypertension and recently moved to the area but has yet to establish care with a primary care provider. Last month he was seen in our emergency department and had medication refill and states he did call to set up an appointment but has not heard a date or time yet. He states he is asymptomatic and has no other concerns or complaints other than wanting his medication refilled for another month until he can get his appointment. Patient denies any fever, chills, headache, change in vision, syncope or near syncope. Denies any chest pain, back pain, shortness of breath or cough. Denies any GI or symptoms. Review of systems: As per history of present illness and below otherwise all systems reviewed and negative. Past medical history: As per history of present illness and as reviewed below otherwise noncontributory. Surgical history: As per history of present illness and as reviewed below otherwise noncontributory. Social history: See social history for further information Family history: As per history of present illness and as reviewed below otherwise noncontributory. Physical exam: General: Well-developed and well nourished 45-year-old male. Alert and oriented. Nontoxic-appearing and in no acute distress. HEENT: Atraumatic, normocephalic, pupils equal and reactive bilaterally, negative for conjunctival pallor or scleral icterus, mucous membranes moist, trachea midline. No drooling or trismus noted. No meningeal signs. No hot potato voice noted. Lungs: Clear to auscultation, breath sounds equal bilaterally, chest nontender. Heart: S1S2, regular rate and rhythm without overt murmur Abdomen: Soft, nondistended, nontender. Skin: Intact, warm, dry. No lesions or rashes noted. Extremities: Atraumatic, moves all extremities per self without difficulty or deficits, negative for cords or calf pain. Neurovascular unremarkable. Neuro: Awake, alert, oriented. Cranial nerves II through XII unremarkable. Cerebellum unremarkable. Motor and sensory unremarkable throughout. Exam nonfocal. Notes: Patient declines wanting any diagnostics at this time he states he feels healthy. We discussed the importance of establishing care with a primary care provider for his chronic health conditions. Supportive care measures were reviewed and discussed. Voices understanding and is agreeable to plan of care. Denies any further questions or concerns at this time. Diagnostics: None Therapeutics: None Prescription: Clonidine Impression: Encounter for medication refill Plan: 1. Take your medications as prescribed. 2. Please make sure you follow-up with primary care see you can have your medications refilled and continue with your care and management of your chronic health problems. 3. Return to the emergency room as needed and as discussed. Definitive disposition and diagnosis as appropriate pending reevaluation and review of above. - Related Data Allergies Allergy/AdvReac Type Severity Reaction Status Date / Time No Known Allergies Allergy Verified 04/11/20 18:58 Home Meds: Home Meds Chlorthalidone 25 mg PO DAILY 03/11/20 [History] Losartan Potassium 50 mg PO DAILY 03/11/20 [History] amLODIPine Besylate [Amlodipine Besylate] 5 mg PO DAILY 03/11/20 [History] cloNIDine [Catapres] 0.1 mg PO Q8H PRN #30 tab 04/11/20 [Rx] Past Medical History Other HEENT History: many dental caries, dry socket Cardiovascular History: Reports: Hypertension Respiratory History: Reports: None Gastrointestinal History: Reports: None Genitourinary History: Reports: None Musculoskeletal History: Reports: None Neurological History: Reports: None Psychiatric History: Reports: Addiction Endocrine/Metabolic History: Reports: None Hematologic History: Reports: None Immunologic History: Reports: None Oncologic (Cancer) History: Reports: None Dermatologic History: Reports: None - Infectious Disease History Infectious Disease History: Reports: Chicken Pox - Past Surgical History Head Surgeries/Procedures: Reports: None Social & Family History - Family History Family Medical History: Noncontributory - Caffeine Use Caffeine Use: Reports: Coffee, Energy Drinks, Soda, Tea ED ROS GENERAL - Review of Systems Review Of Systems: Comprehensive ROS is negative, except as noted in HPI. ED EXAM, GENERAL - Physical Exam Exam: See Below (See dictation) Course - Vital Signs Last Recorded V/S: Last Vital Signs Temp 98.6 F 04/11/20 19:00 Pulse 76 04/11/20 19:00 Resp 16 04/11/20 19:00 BP 146/87 H 04/11/20 19:00 Pulse Ox 98 04/11/20 19:00 Departure - Departure Time of Disposition: 19:00 Disposition: Home, Self-Care 01 Clinical Impression: Encounter for medication refill - Discharge Information Prescriptions: cloNIDine [Catapres] 0.1 mg PO Q8H PRN #30 tab PRN Reason: Hypertension Instructions: Medicine Refill at the Emergency Department Referrals: Julianna Guthrie NP [Primary Care Provider] - Forms: ED Department Discharge Additional Instructions: The following information is given to patients seen in the emergency department who are being discharged to home. This information is to outline your options for follow-up care. We provide all patients seen in our emergency department with a follow-up referral. The need for follow-up, as well as the timing and circumstances, are variable depending upon the specifics of your emergency department visit. If you don't have a primary care physician on staff, we will provide you with a referral. We always advise you to contact your personal physician following an emergency department visit to inform them of the circumstance of the visit and for follow-up with them and/or the need for any referrals to a consulting specialist. The emergency department will also refer you to a specialist when appropriate. This referral assures that you have the opportunity for follow-up care with a specialist. All of these measure are taken in an effort to provide you with optimal care, which includes your follow-up. Under all circumstances we always encourage you to contact your private physician who remains a resource for coordinating your care. When calling for follow-up care, please make the office aware that this follow-up is from your recent emergency room visit. If for any reason you are refused follow-up, please contact the [facility] Emergency Department at and asked to speak to the emergency department charge nurse. [facility] [address] [place] [id number] [address] 1. Take your medications as prescribed. 2. Please make sure you follow-up with primary care see you can have your medications refilled and continue with your care and management of your chronic health problems. 3. Return to the emergency room as needed and as discussed. Sepsis Event Note - Focused Exam Vital Signs: Vital Signs Temp Pulse Resp BP Pulse Ox 04/11/20 19:00 98.6 F 76 16 146/87 H 98 Date Exam was Performed: 04/11/20 Time Exam was Performed: 19:10
[2020-04-11 19:07] VITALS: BP 146/87; PULSE 76
== END 2020-04-11 19:09 | disposition home or self-care (01) ==
LOC: MW.ED 18:46
DX: I10 Essential (primary) hypertension (principal); Z76.0 Encounter for issue of repeat prescription; Z79.899 Other long term (current) drug therapy
CPT/HCPCS: 99281

== ENCOUNTER 2020-04-30 17:05 | Emergency (ER) | payer BC ==
[2020-04-30 17:26] VITALS: PULSE 78
--- NOTE | 2020-04-30 17:31 | EDM.PDOC ---
ED HPI GENERAL MEDICAL PROBLEM - General Chief Complaint: General Stated Complaint: TOOTH ACHE Time Seen by Provider: 04/30/20 17:25 - History of Present Illness INITIAL COMMENTS - FREE TEXT/NARRATIVE: History of present illness: [] Patient presents to the emergency department with right lower dental pain which is been present for more than 1 week he denies any trouble swallowing no fever no chills he takes [id number] pain medications nothing is making it go away he is not bothered to contact a dentist. Review of systems: As per history of present illness and below otherwise all systems reviewed and negative. Past medical history: As per history of present illness and as reviewed below otherwise noncontributory. Surgical history: As per history of present illness and as reviewed below otherwise noncontribut ory. Social history: No reported history of drug or alcohol abuse. Family history: As per history of present illness and as reviewed below otherwise noncontributory. Physical exam: HEENT: Atraumatic, normocephalic, pupils reactive, negative for conjunctival pallor or scleral icterus, mucous membranes moist, throat clear, neck supple, nontender, trachea midline. Widespread poor dentition no trismus Lungs: Clear to auscultation, breath sounds equal bilaterally, chest nontender. Heart: S1S2, regular, negative for clicks, rubs, or JVD. Abdomen: Soft, nondistended, nontender. Negative for masses or hepatosplenomegaly. Negative for costovertebral tenderness. Pelvis: Stable nontender. Genitourinary: Deferred. Rectal: Deferred. Extremities: Atraumatic, negative for cords or calf pain. Neurovascular unremarkable. Neuro: Awake, alert, oriented. Cranial nerves II through XII unremarkable. Cerebellum unremarkable. Motor and sensory unremarkable throughout. Exam nonfocal. Diagnostics: [] Therapeutics: [] Impression: Dental pain [] Plan: Naproxen Pen-Vee K encouraged to see a dentist [] Definitive disposition and diagnosis as appropriate pending reevaluation and review of above. Right dental Pain Score (Numeric/FACES): 8 - Related Data Allergies Allergy/AdvReac Type Severity Reaction Status Date / Time No Known Allergies Allergy Verified 04/30/20 17:19 Home Meds: Home Meds Chlorthalidone 25 mg PO DAILY 03/11/20 [History] Losartan Potassium 50 mg PO DAILY 03/11/20 [History] amLODIPine Besylate [Amlodipine Besylate] 5 mg PO DAILY 03/11/20 [History] cloNIDine [Catapres] 0.1 mg PO Q8H PRN #30 tab 04/11/20 [Rx] Naproxen [EC-Naproxen] 500 mg PO Q12HR #20 tablet. 04/30/20 [Rx] Penicillin V Potassium [Veetids] 500 mg PO QID #40 tab 04/30/20 [Rx] Past Medical History HEENT History: Reports: None Other HEENT History: many dental caries, dry socket Cardiovascular History: Reports: Hypertension Respiratory History: Reports: None Gastrointestinal History: Reports: None Genitourinary History: Reports: UTI, Recurrent Musculoskeletal History: Reports: None, Other (See Below) Other Musculoskeletal History: 22 stitches in R) leg Neurological History: Reports: None Psychiatric History: Reports: Addiction Endocrine/Metabolic History: Reports: None Hematologic History: Reports: None Immunologic History: Reports: None Oncologic (Cancer) History: Reports: None Dermatologic History: Reports: None - Infectious Disease History Infectious Disease History: Reports: Chicken Pox - Past Surgical History Head Surgeries/Procedures: Reports: None Social & Family History - Family History Family Medical History: Noncontributory - Caffeine Use Caffeine Use: Reports: None ED ROS GENERAL - Review of Systems Review Of Systems: See Below ED EXAM, GENERAL - Physical Exam Exam: See Below Course - Vital Signs Text/Narrative:: Patient is encouraged to follow-up with a dentist is explained to him that I am unable to properly take care of dental problems at the emergency department. Last Recorded V/S: Last Vital Signs Temp 36.7 C 04/30/20 17:22 Pulse 78 04/30/20 17:22 Resp 18 04/30/20 17:22 BP 144/83 H 04/30/20 17:22 Pulse Ox 98 04/30/20 17:22 Departure - Departure Time of Disposition: 17:28 Disposition: Home, Self-Care 01 Condition: Good Clinical Impression: Dental caries - Discharge Information *PRESCRIPTION DRUG MONITORING PROGRAM REVIEWED*: Not Applicable *COPY OF PRESCRIPTION DRUG MONITORING REPORT IN PATIENT KATHY: Not Applicable Instructions: Preventive Dental Care, Adult Referrals: Physician,Other [Primary Care Provider] - Additional Instructions: The following information is given to patients seen in the emergency department who are being discharged to home. This information is to outline your options for follow-up care. We provide all patients seen in our emergency department with a follow-up referral. The need for follow-up, as well as the timing and circumstances, are variable depending upon the specifics of your emergency department visit. If you don't have a primary care physician on staff, we will provide you with a referral. We always advise you to contact your personal physician following an emergency department visit to inform them of the circumstance of the visit and for follow-up with them and/or the need for any referrals to a consulting specialist. The emergency department will also refer you to a specialist when appropriate. This referral assures that you have the opportunity for follow-up care with a specialist. All of these measure are taken in an effort to provide you with optimal care, which includes your follow-up. Under all circumstances we always encourage you to contact your private physician who remains a resource for coordinating your care. When calling for follow-up care, please make the office aware that this follow-up is from your recent emergency room visit. If for any reason you are refused follow-up, please contact the [facility] Emergency Department at and asked to speak to the emergency department charge nurse. You need to follow-up with a dentist for definitive care. Sepsis Event Note (ED) - Evaluation Sepsis Screening Result: No Definite Risk - Focused Exam Vital Signs: Vital Signs Temp Pulse Resp BP Pulse Ox 04/30/20 17:22 36.7 C 78 18 144/83 H 98
[2020-04-30 17:48] VITALS: BP 133/77
== END 2020-04-30 17:48 | disposition home or self-care (01) ==
LOC: MW.ED 17:05
DX: K02.9 Dental caries, unspecified (principal); I10 Essential (primary) hypertension; Z79.899 Other long term (current) drug therapy
CPT/HCPCS: 99282

== ENCOUNTER 2020-05-04 18:10 | Emergency (ER) | payer BC ==
--- NOTE | 2020-05-04 18:16 | EDM.PDOC ---
ED HPI GENERAL MEDICAL PROBLEM - General Stated Complaint: HIGH BLOOD PRESSURE Time Seen by Provider: 05/04/20 18:15 Source of Information: Reports: Patient History Limitations: Reports: No Limitations - History of Present Illness INITIAL COMMENTS - FREE TEXT/NARRATIVE: HISTORY AND PHYSICAL: History of present illness: Patient is a 45-year-old male who presents to the emergency room with complaints of dental pain and hypertension. Patient has a history of hypertension and does take daily medication along with clonidine for episodes where his blood pressure is elevated. He states that he had a tooth extracted at 1430 and shortly after he became dizzy and was concerned his blood pressure was elevated. He did take a clonidine approximately 1 hour prior to arrival. His symptoms of dizziness has subsided he now has the dental pain but states he cannot take any narcotics as he does take Suboxone. Patient denies any fever, chills, headache, change in vision, syncope or near syncope. Denies any chest pain, back pain, shortness of breath or cough. Denies any GI or symptoms. Patient has been eating and drinking appropriately. Review of systems: As per history of present illness and below otherwise all systems reviewed and negative. Past medical history: As per history of present illness and as reviewed below otherwise noncontributory. Surgical history: As per history of present illness and as reviewed below otherwise noncontributory. Social history: See social history for further information Family history: As per history of present illness and as reviewed below otherwise noncontributory. Physical exam: General: Well-developed and well-nourished 45-year-old male. Alert and oriented. Nontoxic-appearing and in no acute distress. HEENT: Atraumatic, normocephalic, pupils equal and reactive bilaterally, negative for conjunctival pallor or scleral icterus, mucous membranes moist, dental extraction noted to the right mid lower jawline. TMs normal bilaterally, throat clear, neck supple, nontender, trachea midline. No drooling or trismus noted. No meningeal signs. No hot potato voice noted. Lungs: Clear to auscultation, breath sounds equal bilaterally, chest nontender. Heart: S1S2, regular rate and rhythm without overt murmur Abdomen: Soft, nondistended, nontender. Skin: Intact, warm, dry. No lesions or rashes noted. Extremities: Atraumatic, moves all extremities per self without difficulty or deficits, negative for cords or calf pain. Neurovascular unremarkable. Neuro: Awake, alert, oriented. Cranial nerves II through XII unremarkable. Cerebellum unremarkable. Motor and sensory unremarkable throughout. Exam nonfocal. Notes: EKG shows a normal sinus rhythm with rate of 64. This was compared to previous EKG on 09/02/2018, no changes. Vital signs remained stable. He states he is asymptomatic and declines any diagnostics. After reviewing it does show that he has had labs recently done in [place]. Follow-up and supportive care measures were reviewed and discussed. Voices understanding and is agreeable to plan of care. Denies any further questions or concerns at this time. Diagnostics: EKG Therapeutics: Dental balls Prescription: None Impression: Dentalgia Encounter for medical screening exam Plan: 1. Continue taking your home medications for your hypertension as directed. 2. Alternate Tylenol and ibuprofen as needed for pain. You can use the dental balls as needed for topical pain relief. 3. Please follow-up with your dentist if continue to have pain. Follow-up with your primary care provider for your high blood pressure concerns. Return to the emergency room as needed and as we discussed. Definitive disposition and diagnosis as appropriate pending reevaluation and review of above. mouth Pain Score (Numeric/FACES): 10 - Related Data Allergies Allergy/AdvReac Type Severity Reaction Status Date / Time No Known Allergies Allergy Verified 05/04/20 18:23 Home Meds: Home Meds Chlorthalidone 25 mg PO DAILY 03/11/20 [History] Losartan Potassium 50 mg PO DAILY 03/11/20 [History] amLODIPine Besylate [Amlodipine Besylate] 5 mg PO DAILY 03/11/20 [History] cloNIDine [Catapres] 0.1 mg PO Q8H PRN #30 tab 04/11/20 [Rx] Naproxen [EC-Naproxen] 500 mg PO Q12HR #20 tablet. 04/30/20 [Rx] Penicillin V Potassium [Veetids] 500 mg PO QID #40 tab 04/30/20 [Rx] Buprenorphine HCl/Naloxone HCl [Suboxone 4 mg-1 mg Sl Film] 1 each SL DAILY 05/04/20 [History] Past Medical History HEENT History: Reports: None Other HEENT History: many dental caries, dry socket Cardiovascular History: Reports: Hypertension Respiratory History: Reports: None Gastrointestinal History: Reports: None Genitourinary History: Reports: UTI, Recurrent Musculoskeletal History: Reports: None, Other (See Below) Other Musculoskeletal History: 22 stitches in R) leg Neurological History: Reports: None Psychiatric History: Reports: Addiction Endocrine/Metabolic History: Reports: None Hematologic History: Reports: None Immunologic History: Reports: None Oncologic (Cancer) History: Reports: None Dermatologic History: Reports: None - Infectious Disease History Infectious Disease History: Reports: Chicken Pox - Past Surgical History Head Surgeries/Procedures: Reports: None Social & Family History - Family History Family Medical History: Noncontributory - Caffeine Use Caffeine Use: Reports: None ED ROS GENERAL - Review of Systems Review Of Systems: Comprehensive ROS is negative, except as noted in HPI. ED EXAM, GENERAL - Physical Exam Exam: See Below (See dictation) Course - Vital Signs Last Recorded V/S: Last Vital Signs Temp 97.2 F 05/04/20 18:26 Pulse 75 05/04/20 19:01 Resp 18 05/04/20 19:01 BP 146/91 H 05/04/20 19:01 Pulse Ox 94 L 05/04/20 19:01 - Orders/Labs/Meds Orders: Active Orders 24 hr Category Date Time Status EKG Documentation Completion [RC] STAT Care 05/04/20 18:33 Active Meds: Medications Discontinued Medications Generic Name Dose Route Start Last Admin Trade Name Federica PRN Reason Stop Dose Admin Benzocaine 2 each 05/04/20 18:33 05/04/20 18:58 Hurricaine One 20% MUCMEM 05/04/20 18:34 2 each ONETIME ONE Administration Lidocaine HCl 15 ml 05/04/20 18:33 05/04/20 18:58 Xylocaine 2% Viscous PO 05/04/20 18:34 15 ml ONETIME ONE Administration Departure - Departure Time of Disposition: 19:09 Disposition: Home, Self-Care 01 Clinical Impression: Encounter for medical screening examination, Dentalgia - Discharge Information Instructions: Dental Extraction, [id number], Diet and Dental Disease, Tooth Injuries, [id number], Benzocaine mouth gel, ointment, solution, or dental paste Referrals: PCP,None [Primary Care Provider] - Forms: ED Department Discharge Additional Instructions: The following information is given to patients seen in the emergency department who are being discharged to home. This information is to outline your options for follow-up care. We provide all patients seen in our emergency department with a follow-up referral. The need for follow-up, as well as the timing and circumstances, are variable depending upon the specifics of your emergency department visit. If you don't have a primary care physician on staff, we will provide you with a referral. We always advise you to contact your personal physician following an emergency department visit to inform them of the circumstance of the visit and for follow-up with them and/or the need for any referrals to a consulting specialist. The emergency department will also refer you to a specialist when appropriate. This referral assures that you have the opportunity for follow-up care with a specialist. All of these measure are taken in an effort to provide you with optimal care, which includes your follow-up. Under all circumstances we always encourage you to contact your private physician who remains a resource for coordinating your care. When calling for follow-up care, please make the office aware that this follow-up is from your recent emergency room visit. If for any reason you are refused follow-up, please contact the [facility] Emergency Department at and asked to speak to the emergency department charge nurse. [facility] [address] [place] [address] [place] [address] 1. Continue taking your home medications for your hypertension as directed. 2. Alternate Tylenol and ibuprofen as needed for pain. You can use the dental balls as needed for topical pain relief. 3. Please follow-up with your dentist if continue to have pain. Follow-up with your primary care provider for your high blood pressure concerns. Return to the emergency room as needed and as we discussed. Sepsis Event Note (ED) - Focused Exam Vital Signs: Vital Signs Temp Pulse Resp BP Pulse Ox 05/04/20 19:01 75 18 146/91 H 94 L 05/04/20 18:26 97.2 F 70 18 155/95 H 96 - My Orders Last 24 Hours: My Active Orders 05/04/20 18:33 EKG Documentation Completion [RC] STAT - Assessment/Plan Last 24 Hours: My Active Orders 05/04/20 18:33 EKG Documentation Completion [RC] STAT
[2020-05-04] MEDS ORDERED: Lidocaine 2% Viscous Solution 15 ML Cup PO ONE (18:33)
[2020-05-04] MEDS ORDERED: Benzocaine 20% Topical Spray UD MUCMEM ONE (18:33)
[2020-05-04 19:02] VITALS: BP 146/91; PULSE 75
== END 2020-05-04 19:11 | disposition home or self-care (01) ==
LOC: MW.ED 18:10
DX: K08.89 Other specified disorders of teeth and supporting structures (principal); I10 Essential (primary) hypertension; Z79.899 Other long term (current) drug therapy
CPT/HCPCS: 93005; 99283; A9270

== ENCOUNTER 2021-10-09 19:25 | Emergency (ER) | payer BC ==
--- NOTE | 2021-10-09 19:51 | PCM.EKG ---
#1 Interpretation EKG Date: 10/09/21 Time: 19:44 Rhythm: NSR Rate (Beats/Min): 64 [place]: Normal P-Wave: Present QRS: Normal ST-T: Normal QT: Normal Comparison: No Change (05/04/20) EKG Interpretation Comments: Sinus Rhythm
--- NOTE | 2021-10-09 20:24 | EDM.PDOC ---
ED HPI GENERAL MEDICAL PROBLEM - General Chief Complaint: Cardiovascular Problem Stated Complaint: HIGH BP, COUGH Time Seen by Provider: 10/09/21 19:34 - History of Present Illness INITIAL COMMENTS - FREE TEXT/NARRATIVE: CHIEF COMPLAINT(S): High blood pressure HISTORY OF PRESENT ILLNESS: This is a 46-year-old and with a prior history of anxiety on antianxiety medications who is no longer on anxiety medications and hypertension who comes to the emergency department with a chief complaint of high blood pressure. The patient states that throughout the day he felt like his face was tingling and his eyes were twitching. He denies any chest pain, shortness of breath, abdominal pain, nausea or vomiting. He denies any headache, blurry vision, double vision, loss of vision, numbness, tingling, weakness. He states that he went home because of his symptoms and checked his blood pressure and it was elevated at 174/122. He states that he took his dose of clonidine and lisinopril but it did not seem to be coming down so he came to the emergency department. He denies any decreased urination or any other symptoms. REVIEW OF SYSTEMS: Constitutional: Denies fever, chills. Eyes: Denies eye pain Ears, Nose, Mouth, & Throat: Denies earache Cardiovascular: Denies chest pain Respiratory: Denies shortness of breath Gastrointestinal: Denies Nausea, vomiting, diarrhea, hematochezia. Genitourinary: Denies hematuria Skin:Denies a rash MSK: Positive for bilateral eye twitching. denies joint pain Neurological: Positive for facial paresthesias. Denies headache, blurred vision, double vision, numbness, tingling, weakness Psychiatric: Denies depression PAST MEDICAL HISTORY: As per history of present illness and as reviewed below otherwise noncontributory. SURGICAL HISTORY: As per history of present illness and as reviewed below otherwise noncontributory. SOCIAL HISTORY: As per history of present illness and as reviewed below otherwise noncontributory. FAMILY HISTORY: As per history of present illness and as reviewed below otherwise noncontributory. EXAMINATION OF ORGAN SYSTEMS/BODY AREAS: Constitutional: Blood pressure is 152/87, heart rate 73, respiratory rate 16 with an oxygen saturation 96% on room air. Temperature 36.7 General: Well-appearing man who is in no acute distress Psychiatric: Appropriate mood and affect. Eyes: No scleral icterus or conjunctival erythema pupils are equal round reactive to light. Extraocular movements intact. No nystagmus noted. No proptosis. ENMT: Moist mucous membranes. No pharyngeal erythema no stridor, drooling, trismus Cardiovascular: Regular, rate, and rhythm. No gallops, murmurs, or rubs. Bilateral upper extremity pulses symmetric and intact. No peripheral edema. No JVD. Respiratory: Lungs clear to auscultation bilaterally. No wheezes, rales, or rhonchi. Gastrointestinal: Soft, non-tender, non-distended. Normoactive bowel sounds Genitourinary: No suprapubic tenderness Musculoskeletal: Normal range of motion. Skin: No lesions or abrasions. No swelling of the face or facial asymmetry Neurological: AOx4. CN grossly intact. Strength 5/5 in bilateral upper and lower extremity. Sensation is intact bilaterally in upper and lower extremity. Gait appears normal. Finger to nose, heel to kulkarni, rapid alternating movements intact. MEDICAL DECISION MAKING AND COURSE IN THE ED WITH INTERPRETATION/REVIEW OF DIAGNOSTIC STUDIES: This is a 46-year-old man with a past medical history of anxiety and hypertension who comes to the emergency department with hypertensive episode with facial paresthesias and bilateral eye twitching whose blood pressure is significantly improved since arrival in the emergency department after taking his clonidine at home. On my evaluation his blood pressure was 144/81. Cardiac monitoring at this time did feel sinus rhythm and pulse oximetry with good waveform and is 96 to 97% on room air. At this time given his history of hypertension we'll obtain EKG to evaluate for any endorgan damage. EKG was obtained which did not reveal any acute signs of ischemia. Will obtain labs including electrolyte abnormalities to evaluate given his paresthesias. The patient was amenable to this plan. I do believe that his symptoms are likely secondary to anxiety. DDx: Anxiety, ACS, electrolyte abnormality Laboratory: CBC is unremarkable. CMP reveals hypokalemia at 2.8 otherwise unremarkable. Magnesium is normal at 1.9. Troponin is negative. After labs I did provide the patient with 40 mEq of potassium by mouth and 800 mg of magnesium oxide. I did discuss with patient his results. I did encourage the patient to stay for a repeat lab. He states that he "appreciates all that were doing however I needs to go home because my has to work." At this time the patient does not have any EKG findings worrisome for severe hypokalemia, the patient's blood pressure is improved. I do believe the patient is stable for discharge. I did encourage the patient to return if he has any new or worsening symptoms. He was amenable to discharge at this time and had no further questions DISPOSITION: The patient was discharged home in stable condition. The patient will follow up with primary care physician in 3 to 5 days CONDITION: Fair PROCEDURES: None FINAL IMPRESSION(S)/DIAGNOSES: 1. Acute paresthesias, possibly secondary to hypokalemia 2. Acute hypokalemia 3. Hypertension Sid Wheeler M.D. - Related Data Allergies Allergy/AdvReac Type Severity Reaction Status Date / Time No Known Allergies Allergy Verified 05/04/20 18:23 Home Meds: Home Meds Chlorthalidone 25 mg PO DAILY 03/11/20 [History] cloNIDine [Catapres] 0.1 mg PO Q8H PRN #30 tab 04/11/20 [Rx] Buprenorphine HCl/Naloxone HCl [Suboxone 4 mg-1 mg Sl Film] 1 each SL DAILY 05/04/20 [History] Metoprolol Succinate [Toprol XL] 25 mg PO DAILY 10/09/21 [History] Past Medical History HEENT History: Reports: None Other HEENT History: many dental caries, dry socket Cardiovascular History: Reports: Hypertension Respiratory History: Reports: None Gastrointestinal History: Reports: None Genitourinary History: Reports: UTI, Recurrent Musculoskeletal History: Reports: None, Other (See Below) Other Musculoskeletal History: 22 stitches in R) leg Neurological History: Reports: None Psychiatric History: Reports: Addiction Endocrine/Metabolic History: Reports: None Hematologic History: Reports: None Immunologic History: Reports: None Oncologic (Cancer) History: Reports: None Dermatologic History: Reports: None - Infectious Disease History Infectious Disease History: Reports: Chicken Pox - Past Surgical History Head Surgeries/Procedures: Reports: None HEENT Surgical History: Reports: Tonsillectomy Social & Family History - Family History Family Medical History: No Pertinent Family History - Caffeine Use Caffeine Use: Reports: None - Recreational Drug Use Recreational Drug Use: No ED ROS GENERAL - Review of Systems Review Of Systems: See Below ED EXAM, GENERAL - Physical Exam Exam: See Below Course - Vital Signs Last Recorded V/S: Last Vital Signs Temp 36.7 C 12/06/21 19:30 Pulse 69 10/09/21 21:04 Resp 18 10/09/21 21:04 BP 132/90 10/09/21 21:04 Pulse Ox 95 10/09/21 21:04 - Orders/Labs/Meds Labs: Laboratory Tests 10/09/21 10/09/21 Range/Units 20:17 20:17 WBC 8.07 (4.0-11.0) K/uL RBC 4.67 (4.50-5.90) M/uL Hgb 14.9 (13.0-17.0) g/dL Hct 42.2 (38.0-50.0) % MCV 90.4 (80.0-98.0) fL MCH 31.9 (27.0-32.0) pg MCHC 35.3 (31.0-37.0) g/dL RDW Std Deviation 43.5 (28.0-62.0) fl RDW Coeff of [place] 13 (11.0-15.0) % Plt Count 221 (150-400) K/uL MPV 10.60 (7.40-12.00) fL Neut % (Auto) 55.5 (48.0-80.0) % Lymph % (Auto) 34.1 (16.0-40.0) % [place] % (Auto) 6.4 (0.0-15.0) % Eos % (Auto) 3.5 (0.0-7.0) % Baso % (Auto) 0.5 (0.0-1.5) % Neut # (Auto) 4.5 (1.4-5.7) K/uL Lymph # (Auto) 2.8 H (0.6-2.4) K/uL [place] # (Auto) 0.5 (0.0-0.8) K/uL Eos # (Auto) 0.3 (0.0-0.7) K/uL Baso # (Auto) 0.0 (0.0-0.1) K/uL Nucleated RBC % 0.0 /100WBC Nucleated RBCs # 0 K/uL Sodium 138 (136-148) mmol/L Potassium 2.8 L (3.5-5.1) mmol/L Chloride 99 (98-107) mmol/L Carbon Dioxide 29.5 (21.0-32.0) mmol/L BUN 12 (7.0-18.0) mg/dL Creatinine 0.7 L (0.8-1.3) mg/dL Est Cr Clr Drug Dosing 127.57 mL/min Estimated GFR (MDRD) > 60.0 ml/min Glucose 100 (74-106) mg/dL Calcium 8.7 (8.5-10.1) mg/dL Magnesium 1.9 (1.8-2.4) mg/dL Total Bilirubin 0.2 (0.2-1.0) mg/dL AST 19 (15-37) IU/L ALT 44 (14-63) IU/L Alkaline Phosphatase 56 (46-116) U/L Troponin I < 0.050 (0.000-0.056) ng/mL Total Protein 7.5 (6.4-8.2) g/dL Albumin 3.6 (3.4-5.0) g/dL Globulin 3.9 (2.6-4.0) g/dL Albumin/Globulin Ratio 0.9 (0.9-1.6) Meds: Medications Discontinued Medications Generic Name Dose Route Start Last Admin Trade Name Freq PRN Reason Stop Dose Admin Magnesium Oxide 800 mg 10/09/21 20:58 10/09/21 21:06 Magnesium Oxide 400 Mg Tab PO 10/09/21 20:59 800 mg ONETIME ONE Administration Potassium Chloride 40 meq 10/09/21 20:53 10/09/21 21:06 Potassium Chloride 10% 20 Meq/15 Ml Soln 30 Ml Ud Cup PO 10/09/21 20:54 40 meq ONETIME ONE Administration Potassium Chloride 40 meq 10/09/21 20:58 10/09/21 21:08 Potassium Chloride 10% 20 Meq/15 Ml Soln 30 Ml Ud Cup PO 10/09/21 20:59 Not Given ONETIME ONE Departure - Departure Time of Disposition: 21:23 Disposition: Home, Self-Care 01 Condition: Fair Clinical Impression: Hypokalemia - Discharge Information *PRESCRIPTION DRUG MONITORING PROGRAM REVIEWED*: No *COPY OF PRESCRIPTION DRUG MONITORING REPORT IN PATIENT KATHY: No Instructions: Hypokalemia Referrals: Mary Figueredo DO [Primary Care Provider] - Forms: ED Department Discharge Additional Instructions: You were evaluated today on an emergent basis. At this time your work-up was negative except for low potassium. I do believe this could be causing the tingling in your face. I did want you to stay for a repeat level however you decided that it was important to go home. I recommend that if you have any further symptoms that you return to the emergency department. It is important that you supplement with potassium at home I recommend potassium heavy vegetables/fruits such as bananas. I would like you to follow-up with your primary care physician in 3 to 5 days for reevaluation. [facility] - [facility] [address] [place] [id number] [place] [address] The patient is informed of any results of their evaluation and diagnostic workup and all questions are answered. They are given discharge instructions and return precautions. The patient is stable for discharge. The patient states they understand and agree with the plan and that they will return if their symptoms get worse or if they have any new concerns. The following information is given to patients seen in the emergency department who are being discharged to home. This information is to outline your options for follow-up care. We provide all patients seen in our emergency department with a follow-up referral. The need for follow-up, as well as the timing and circumstances, are variable depending upon the specifics of your emergency department visit. If you don't have a primary care physician on staff, we will provide you with a referral. We always advise you to contact your personal physician following an emergency department visit to inform them of the circumstance of the visit and for follow-up with them and/or the need for any referrals to a consulting specialist. The emergency department will also refer you to a specialist when appropriate. This referral assures that you have the opportunity for follow-up care with a specialist. All of these measure are taken in an effort to provide you with optimal care, which includes your follow-up. Under all circumstances we always encourage you to contact your private physician who remains a resource for coordinating your care. When calling for follow-up care, please make the office aware that this follow-up is from your recent emergency room visit. If for any reason you are refused follow-up, please contact the [facility] Emergency Department at and asked to speak to the emergency department charge nurse. Sepsis Event Note (ED) - Focused Exam Vital Signs: Vital Signs Temp Pulse Resp BP Pulse Ox 10/09/21 21:04 69 18 132/90 95 10/09/21 19:30 36.7 C 73 16 152/87 H 96
[2021-10-09 20:46] LABS: BLOOD UREA NITROGEN,BUN 12 mg/dL (7.0-18.0); CARBON DIOXIDE,CO2 29.5 mmol/L (21.0-32.0); CHLORIDE,CL 99 mmol/L (98-107); GLUCOSE RANDOM 100 mg/dL (74-106); POTASSIUM,K 2.8 mmol/L (3.5-5.1); SODIUM,NA 138 mmol/L (136-148)
[2021-10-09] MEDS ORDERED: Potassium Chloride 10% 20 MEQ/15 ML Soln 30 ML UD Cup PO ONE ×2 (20:53→20:58)
[2021-10-09] MEDS ORDERED: Magnesium Oxide 400 MG Tab PO ONE (20:58)
[2021-10-09 21:05] VITALS: BP 132/90; PULSE 69
== END 2021-10-09 21:45 | disposition home or self-care (01) ==
LOC: MW.ED 19:25
DX: I10 Essential (primary) hypertension (principal); E87.6 Hypokalemia; R20.2 Paresthesia of skin; Z79.899 Other long term (current) drug therapy
CPT/HCPCS: 36415; 80053; 83735; 84484; 85025; 93005; 99284; A9270